=== PATIENT | male | born 2000 | race Two or more races ===

== ENCOUNTER 2024-04-11 13:51 | Outpatient (CLI) | payer OTHER ==
[2024-04-11 15:12] LABS: HEMATOCRIT 46.6 % (39.0-48.0); HEMOGLOBIN 15.8 g/dL (13-16.00); MEAN CELL VOLUME 83.9 fL (80.0-100.00); MEAN CORPUSCULAR HEMOGLOBIN 28.4 pg (27.00-32.0); MEAN CORPUSCULAR HGB CONC 33.9 g/dl (32.0-36.0); PLATELET COUNT 288 K/uL (150-450); RED BLOOD COUNT 5.56 M/uL (4.00-6.00); RED CELL DISTRIBUTION WIDTH 12.9 % (11.5-14.5)
[2024-04-11 15:20] LABS: INR 1.14; PROTHROMBIN TIME 12.3 SECONDS (9.0-11.5)
[2024-04-11 15:40] LABS: ALBUMIN 4.5 gm/dL (3.4-5.0); BILIRUBIN TOTAL 0.68 mg/dL (0.3-1.2); CALCIUM 9.9 mg/dL (8.5-10.1); CHOL HDL RATIO 5.6 (0-5.0); CREATININE SERUM 0.95 mg/dL (0.70-1.30); GFR 97.4; GLOBULINA 3.4 G/DL (2.4-3.5); POTASSIUM 4.59 mEq/L (3.5-5.1); TOTAL PROTEIN 7.9 gm/dL (6.4-8.2); TSH 1.13 uIU/mL (0.358-3.74)
== END 2024-04-11 14:01 | disposition home or self-care (01) ==
LOC: LAB 13:51
PROVIDERS: ATTEND Internal Medicine Gastroenterology
DX: R10.13 Epigastric pain (principal); R50.9 Fever, unspecified; R19.7 Diarrhea, unspecified